=== PATIENT | female | born 2000 | race Caucasian/White ===

== ENCOUNTER → 2021-10-22 | Outpatient (CLI) | payer OTHER | LOC: HEART 5 15:25 | DX: R06.2 Wheezing (principal); R06.02 Shortness of breath | CPT/HCPCS: 94060; 94729 ==

== ENCOUNTER → 2021-12-05 | Outpatient (CLI) | payer OTHER ==
[~2021-12-05] VITALS: Ht 162.6 cm; Wt 106.1 kg
== END ==
LOC: HEART 5 09:22
DX: R40.0 Somnolence (principal)
CPT/HCPCS: J7674

== ENCOUNTER 2021-12-28 04:52 | Inpatient (IN) | payer OTHER ==
[~2021-12-28] VITALS: Ht 154.9 cm; Wt 107.0 kg
[2021-12-28 05:34] LABS: RED BLOOD COUNT 4.39 M/UL (4.00-5.10)
[2021-12-28 06:07] LABS: BUN/CREATININE RATIO 19 (0-10)
[2021-12-28] MEDS ORDERED: AZITHROMYCIN250 MG PO (10:28)
[2021-12-28] MEDS ORDERED: MEDROL DOSEPAK 24 MG PO (10:29)
[2021-12-28] MEDS ORDERED: PROAIR HFA8.5 GM INH (10:30)
[2021-12-28] MEDS ORDERED: LISINOPRIL10 MG PO (10:30)
[2021-12-28] MEDS ORDERED: ALBUTEROL2.5 MG/3 M INH (10:31)
[2021-12-28] MEDS ORDERED: SPIRIVA HANDIH18 MCG INH (10:32)
[2021-12-28] MEDS ORDERED: LEVOCETIRIZINE D5 MG PO (10:32)
[2021-12-28] MEDS ORDERED: ADVAIR 500-501 EACH INH (10:32)
[2021-12-28 14:54] LABS: BORDETELLA PARAPERTUSSIS Not Detected (Not Detectd); BORDETELLA PERTUSSIS Not Detected (Not Detectd); CHLAMYDIA PNEUMONIAE Not Detected (Not Detectd); CORONAVIRUS HKU1 Not Detected (Not Detectd); CORONAVIRUS NL63 Not Detected (Not Detectd); CORONAVIRUS OC43 Not Detected (Not Detectd); CORONOAVIRUS 229E Not Detected (Not Detectd); HUMAN METAPNEUMOVIRUS Not Detected (Not Detectd); INFLUENZA B Not Detected (Not Detectd); MYCOPLASMA PNEUMONIAE Not Detected (Not Detectd); PARAINFLUENZA VIRUS 1 Not Detected (Not Detectd); PARAINFLUENZA VIRUS 2 Not Detected (Not Detectd); PARAINFLUENZA VIRUS 3 Not Detected (Not Detectd); PARAINFLUENZA VIRUS 4 Not Detected (Not Detectd); RESPIRATORY SYNCYTIAL VIRUS Not Detected (Not Detectd)
[2021-12-28 15:46] LABS: HUMAN RHINOVIRUS/ENTEROVIRUS DETECTED (Not Detectd); INFLUENZA A DETECTED (Not Detectd); SARS-CoV-2 NOT DETECTED (Not Detectd)
[2021-12-29 05:12] LABS: HEMOGLOBIN 12.1 gm/dl (12.3-15.3); RED BLOOD COUNT 4.43 M/UL (4.00-5.10)
[2021-12-29 05:14] LABS: WHITE BLOOD COUNT 4.3 K/UL (4.5-11.0)
[2021-12-29 05:44] LABS: BUN/CREATININE RATIO 18 (0-10)
[2021-12-29] MEDS ORDERED: MONTELUKAST SOD10 MG PO (13:08)
[2021-12-30 05:28] LABS: HEMOGLOBIN 12.1 gm/dl (12.3-15.3); RED BLOOD COUNT 4.45 M/UL (4.00-5.10)
[2021-12-30 05:32] LABS: WHITE BLOOD COUNT 6.9 K/UL (4.5-11.0)
[2021-12-30 06:16] LABS: BUN/CREATININE RATIO 29 (0-10)
[2021-12-30 09:39] LABS: BORDETELLA PARAPERTUSSIS Not Detected (Not Detectd); BORDETELLA PERTUSSIS Not Detected (Not Detectd); CHLAMYDIA PNEUMONIAE Not Detected (Not Detectd); CORONAVIRUS HKU1 Not Detected (Not Detectd); CORONAVIRUS NL63 Not Detected (Not Detectd); CORONAVIRUS OC43 Not Detected (Not Detectd); CORONOAVIRUS 229E Not Detected (Not Detectd); HUMAN METAPNEUMOVIRUS Not Detected (Not Detectd); INFLUENZA B Not Detected (Not Detectd); MYCOPLASMA PNEUMONIAE Not Detected (Not Detectd); PARAINFLUENZA VIRUS 1 Not Detected (Not Detectd); PARAINFLUENZA VIRUS 2 Not Detected (Not Detectd); PARAINFLUENZA VIRUS 3 Not Detected (Not Detectd); PARAINFLUENZA VIRUS 4 Not Detected (Not Detectd); RESPIRATORY SYNCYTIAL VIRUS Not Detected (Not Detectd)
[2021-12-30 11:01] LABS: HUMAN RHINOVIRUS/ENTEROVIRUS DETECTED (Not Detectd); INFLUENZA A DETECTED (Not Detectd); SARS-CoV-2 NOT DETECTED (Not Detectd)
[2021-12-30 12:12] LABS: IMMUNOGLOBULIN A, QN, SERUM 79 mg/dL (87-352); IMMUNOGLOBULIN G, QN, SERUM 592 mg/dL (586-1602); IMMUNOGLOBULIN M, QN, SERUM 48 mg/dL (26-217)
[2021-12-31 05:50] LABS: HEMOGLOBIN 12.6 gm/dl (12.3-15.3); RED BLOOD COUNT 4.62 M/UL (4.00-5.10)
[2021-12-31 05:51] LABS: WHITE BLOOD COUNT 8.8 K/UL (4.5-11.0)
[2021-12-31 06:15] LABS: BUN/CREATININE RATIO 38 (0-10)
[2021-12-31 14:16] LABS: % CD 4 POS. LYMPH. 43.3 % (30.8-58.5); ABSOLUTE CD 4 HELPER 346 /uL (359-1519); BASOS 0 % (Not Estab.); EOS 0 % (Not Estab.); HEMATOLOGY COMMENTS: Note: (.); HEMOGLOBIN 11.7 g/dL (11.1-15.9); IMMATURE GRANULOCYTES 0 % (Not Estab.); LYMPHS 11 % (Not Estab.); LYMPHS (ABSOLUTE) 0.8 x10E3/uL (0.7-3.1); MCH 26.5 pg (26.6-33.0); MCHC 30.8 g/dL (31.5-35.7); MCV 86 fL (79-97); MONOCYTES 4 % (Not Estab.); MONOCYTES(ABSOLUTE) 0.3 x10E3/uL (0.1-0.9); NEUTROPHILS 85 % (Not Estab.); NEUTROPHILS (ABSOLUTE) 6.1 x10E3/uL (1.4-7.0); PLATELETS 289 x10E3/uL (150-450); RBC 4.42 x10E6/uL (3.77-5.28); RDW 15.5 % (11.7-15.4); WBC 7.1 x10E3/uL (3.4-10.8)
[2022-01-01 05:41] LABS: HEMOGLOBIN 12.4 gm/dl (12.3-15.3); RED BLOOD COUNT 4.61 M/UL (4.00-5.10); WHITE BLOOD COUNT 8.5 K/UL (4.5-11.0)
[2022-01-01 06:18] LABS: BUN/CREATININE RATIO 35 (0-10)
[2022-01-02 05:01] LABS: HEMOGLOBIN 12.4 gm/dl (12.3-15.3); RED BLOOD COUNT 4.5 M/UL (4.00-5.10); WHITE BLOOD COUNT 10.3 K/UL (4.5-11.0)
[2022-01-02 05:20] LABS: BUN/CREATININE RATIO 32 (0-10)
[2022-01-02 07:12] LABS: HIV AB/P24 AG SCREEN Non Reactive (Non Reactive)
[2022-01-02] MEDS ORDERED: MEDROL4 MG PO (15:12)
[2022-01-02] MEDS ORDERED: LEVOFLOXACIN750 MG PO (20:03)
[2022-01-06 13:15] LABS: D002-IGE D FARINAE 4.55 kU/L (Class IV); E001-IGE CAT DANDER <0.10 kU/L (Class 0); E005-IGE DOG DANDER <0.10 kU/L (Class 0); G002-IGE BERMUDA GRASS <0.10 kU/L (Class 0); G006-IGE TIMOTHY GRASS <0.10 kU/L (Class 0); M001-IGE PENICILLIUM CHRYSOGEN <0.10 kU/L (Class 0); M002-IGE CLADOSPORIUM HERBARUM <0.10 kU/L (Class 0); M003-IGE ASPERGILLUS FUMIGATUS <0.10 kU/L (Class 0); M006-IGE ALTERNARIA ALTERNATA <0.10 kU/L (Class 0); T001-IGE MAPLE/BOX ELDER <0.10 kU/L (Class 0); T003-IGE COMMON SILVER BIRCH <0.10 kU/L (Class 0); T006-IGE CEDAR, MOUNTAIN <0.10 kU/L (Class 0); T007-IGE OAK, WHITE <0.10 kU/L (Class 0); T010-IGE WALNUT <0.10 kU/L (Class 0); T011-IGE MAPLE LEAF SYCAMORE <0.10 kU/L (Class 0); T014-IGE COTTONWOOD <0.10 kU/L (Class 0); T015-IGE ASH, WHITE <0.10 kU/L (Class 0); T070-IGE WHITE MULBERRY <0.10 kU/L (Class 0); W001-IGE RAGWEED, SHORT <0.10 kU/L (Class 0); W018-IGE SHEEP SORREL <0.10 kU/L (Class 0)
== END 2022-01-03 14:50 | disposition home or self-care (01) | DRG 199 ==
LOC: ER1 04:52 → CCU 08:45 → CDU 08:45 → CCU 11:21 → MED SURG 4 01-02 11:40
PROVIDERS: Emergency Medicine; Internal Medicine Critical Care Medicine; Internal Medicine Infectious Disease; Physician Assistant Medical; ADMIT Internal Medicine
PROC: 5A0955A Assistance with Respiratory Ventilation, Greater than 96 Consecutive Hours, High Flow/Velocity Cannula (ICD-10-PCS; principal; 2021-12-28)
DX: J98.2 Interstitial emphysema (principal); J96.01 Acute respiratory failure with hypoxia; J45.901 Unspecified asthma with (acute) exacerbation; Z68.42 Body mass index [BMI] 45.0-49.9, adult; J10.1 Influenza due to other identified influenza virus with other respiratory manifestations; E66.9 Obesity, unspecified; D64.9 Anemia, unspecified; Z20.822 Contact with and (suspected) exposure to COVID-19; B97.10 Unspecified enterovirus as the cause of diseases classified elsewhere; I10 Essential (primary) hypertension; R73.9 Hyperglycemia, unspecified; T38.0X5A Adverse effect of glucocorticoids and synthetic analogues, initial encounter; Z90.49 Acquired absence of other specified parts of digestive tract
CPT/HCPCS: 0240U; 36415; 36600; 71045; 71250; 80048; 80053; 82550; 82553; 82784; 82785; 82803; 83036; 83735; 83880; 84484; 84703; 85025; 85027; 86361; 87040; 87070; 87081; 87205; 87389; 87633; 93005; 94640; 94760; 96374; 96375; 99285; J1100; J1650; J2185; J2405; J2920; J2930; Q9967

== ENCOUNTER 2022-04-20 08:18 | Emergency (ER) | payer OTHER ==
[~2022-04-20 08:18] MED LIST: ADVAIR 500-501 EACH INH; ALBUTEROL2.5 MG/3 M INH; AZITHROMYCIN250 MG PO; LEVOCETIRIZINE D5 MG PO; LEVOFLOXACIN750 MG PO; LISINOPRIL10 MG PO; MEDROL DOSEPAK 24 MG PO; MEDROL4 MG PO; MONTELUKAST SOD10 MG PO; PROAIR HFA8.5 GM INH; SPIRIVA HANDIH18 MCG INH
[2022-04-20 09:34] LABS: HEMOGLOBIN 13.7 gm/dl (12.3-15.3); RED BLOOD COUNT 4.75 M/UL (4.00-5.10); WHITE BLOOD COUNT 7.6 K/UL (4.5-11.0)
[2022-04-20 10:00] LABS: BUN/CREATININE RATIO 12 (0-10)
== END 2022-04-20 13:10 | disposition home or self-care (01) ==
LOC: ER1 08:18
PROVIDERS: Physician Assistant
DX: O99.511 Diseases of the respiratory system complicating pregnancy, first trimester (principal); J45.901 Unspecified asthma with (acute) exacerbation; Z20.822 Contact with and (suspected) exposure to COVID-19; Z3A.10 10 weeks gestation of pregnancy
CPT/HCPCS: 0240U; 71045; 80048; 81001; 85025; 85379; 93005; 96374; 99285; J2765; Q9967

== ENCOUNTER 2022-05-26 15:42 | Emergency (ER) | payer OTHER ==
[2022-05-26] MEDS ORDERED: PREDNISONE 50 M50 MG PO (20:55)
== END 2022-05-26 21:55 | disposition home or self-care (01) ==
LOC: ER1 15:42
DX: J45.901 Unspecified asthma with (acute) exacerbation (principal); Z20.822 Contact with and (suspected) exposure to COVID-19
CPT/HCPCS: 71045; 94664; 99284; U0002